=== PATIENT | female | born 1990 | race Caucasian/White ===

== ENCOUNTER 2019-05-02 09:19 | Outpatient (CLI) | payer MEDICAID ==
[~2019-05-02] VITALS: Ht 165.1 cm; Wt 84.1 kg
[~2019-05-02 09:19] MED LIST: MOTRIN 600600 MG/TAB PO; PERCOCET 325 MG1 TA2 PO
--- NOTE | 2019-05-02 09:20 | NUR ---
09- Pt arrives on unit requesting a cervical exam. Pt oriented to room. Pt into bathroom, gown on over clothes. 925- Pt into bed, EFM and TOCO on. VSS. SVE by this RN. Assessment completed.
[2019-05-02 09:33] VITALS: BP 122/77; PULSE 58; TEMP 98.1
[2019-05-02] MEDS ORDERED: CONCEPT DHA1 CAP PO (09:36)
[2019-05-02 09:45] VITALS: BP 124/78; PULSE 65
[2019-05-02 10:04] VITALS: BP 114/74; PULSE 68
--- NOTE | 2019-05-02 10:10 | NUR ---
1004- EFM and TOCO off. Pt updated on plan to discharge home. Pt denies questions. Pt up to bathroom. 1010- Discharge paperwork given and explained. Pt ambulates off unit in stable condition with .
== END 2019-05-02 10:10 | disposition home or self-care (01) ==
LOC: LDRO 09:19
DX: Z34.93 Encounter for supervision of normal pregnancy, unspecified, third trimester (principal); Z3A.40 40 weeks gestation of pregnancy

== ENCOUNTER → 2019-06-20 | Outpatient (CLI) | payer MEDICAID ==
[~2019-06-20] MED LIST changes: +CONCEPT DHA1 CAP PO
--- NOTE | 2019-06-20 11:48 | NUR ---
Edna Jimbo into outpatient clinic with 5 week old baby girl, aNtalia, for breast feeding evaluation due to concerns regarding Natalia making clicking noises while feeding. Natalia was born [birth year] via home assisted by a mid-. Edna notes that Natalia was delivered breech, but reported no other complications. Edna states the mid- has been following Natalia's care up to this point and she has not been in to see Dr. Freedman. Edna states Natalia is strictly nursing and is nursing 8 times per day and is having 6 + wet diapers per day; however, she is only having a bowel movement approximently every other day. Edna states she occasionally pumped during the first two weeks after delivery, but is not currently pumping. Natalia's weight was 7# 14 oz. Today's prefeed weight was noted as 10# 4.6 oz. While Natalia was at the breast, this LC noted clicking noises approximently two minutes into the nursing session on both breasts. After nursing bilaterally, Natalia had a total gain of 4.9 oz (137 gms). LC noted good latch and positioning with nursing. No obvious tongue tie noted; however, the frenulum was noted to be thick, but strechable. Thick white coating also noted to tongue. Edna denies nipple pain, redness, or itching. The clicking noises seem to coincide with let down and may be attributed tongue positioning to help Natalia handle Edna's supply of milk. Suggestions offered that may help Natalia's manage flow (positioning, pumping small amount before breast feeding). Natalia was able to flare her upper lip well and it is unlikely the cause of the clicking while feeding. POC: Continue to feed ad faith. Schedule appointment with Dr. Freedman for routine care and to evaluate white coating on tongue and thick top frenulum.
== END ==
LOC: OLC 10:44
DX: Z39.1 Encounter for care and examination of lactating mother (principal); Z71.89 Other specified counseling